=== PATIENT | female | born 1960 | race African-American/Black ===

== ENCOUNTER → 2022-04-14 14:16 | Outpatient (CLI) | payer OTHER, SELFPAY ==
--- NOTE | ~2022-04-14 | DEXA_ITS ---
Bone Density Report Name: DENNIS GARCIA Age: 61 Sex: Female Ethnicity: Black Date of : 1960 Indication: postmenopausal; screening for osteoporosis; prior fracture; Referring Provider: Chapito, [place] Study: Bone densitometry was performed. Exam Date: April 14, 2022 Accession number: [id number] Bone Density: Region BMD T-score Z-score Classification AP Spine (L1-L4) 1.403 3.2 3.9 Normal Femoral Neck (Left) 0.823 -0.2 0.2 Normal Total Hip (Left) 0.989 0.4 0.5 Normal Femoral Neck (Right) 0.834 -0.1 0.2 Normal Total Hip (Right) 0.969 0.2 0.4 Normal Total Hip Mean 0.979 0.3 0.5 Normal World Health Organization criteria for BMD impression classify patients as: Normal (T-score at or above -1.0), Osteopenia (T-score between -1.0 and -2.5), or Osteoporosis (T-score at or below -2.5). 10-year Fracture Risk: FRAX not reported because: All T-scores for Spine Total, Hip Total, Femoral Neck at or above -1.0 Previous Exams: Region Exam Age BMD T-score BMD Change BMD Change Date g/cm2 vs Baseline vs Previous AP Spine(L1-L4) 04/14/2022 61 1.403 3.2 0.038* 0.038* 06/24/2017 56 1.365 2.9 Total Hip(Left) 04/14/2022 61 0.989 0.4 0.011 0.011 06/24/2017 56 0.978 0.3 Total Hip(Right) 04/14/2022 61 0.969 0.2 0.007 0.007 06/24/2017 56 0.962 0.2 *Denotes significance at 95% confidence level, LSC for AP Spine = 0.022 g/cm2, LSC for Total Hip = 0.027 g/cm2 Clinical Information Provided by Patient: Has had a low trauma fracture Has used the following medications: HRT (i.e. estrogen/hormone therapy), Vitamin D, Calcium Patient maximum height was 66 Menopause Age: 52 Does not regularly consume dairy products Drinks caffeinated beverages Onset of menses at age 13 Number of children 3 Impression: The patient has normal bone mass. The patient has risk factors, including: previous fracture. No significant bone loss was observed. Discussion: BONE DENSITY IS ABOVE THE MINIMUM DESIRABLE LEVEL AT ALL SKELETAL SITES TESTED. This patient?s bone mineral density is above the minimum desirable level (T-score -1.0 or better) at all sites measured. The patient should follow a healthful lifestyle (good nutrition with adequate calcium and vitamin D, and appropriate weight-bearing exercise). Follow-Up: Consider repeating this study in 5 years or sooner if there is some new cli
== END ==
PROVIDERS: PCP Internal Medicine; Visit Provider Nurse Practitioner
DX: Z13.820 Encounter for screening for osteoporosis (principal); Z78.0 Asymptomatic menopausal state
CPT/HCPCS: 77080